=== PATIENT | male | born 1975 | race Caucasian/White ===

== ENCOUNTER 2018-03-22 19:37 | Emergency (ER) | payer OTHER ==
[~2018-03-22] VITALS: Ht 167.6 cm; Wt 102.3 kg
[2018-03-22] MEDS ORDERED: LOSA100T50 (19:42)
[2018-03-22] MEDS ORDERED: FENO1CAP2 (19:42)
[2018-03-22] MEDS ORDERED: FLUO20CA19 (19:42)
[2018-03-22] MEDS ORDERED: NAPR-50 PO (21:59)
[2018-03-22 22:08] VITALS: BP 137/94
== END 2018-03-22 22:09 | disposition home or self-care (01) ==
LOC: M ED 19:37
DX: S86.112A Strain of other muscle(s) and tendon(s) of posterior muscle group at lower leg level, left leg, initial encounter (principal); X50.9XXA Other and unspecified overexertion or strenuous movements or postures, initial encounter; Y92.410 Unspecified street and highway as the place of occurrence of the external cause; Y93.02 Activity, running; I10 Essential (primary) hypertension; E78.5 Hyperlipidemia, unspecified; Z79.899 Other long term (current) drug therapy

== ENCOUNTER → 2020-09-29 | Outpatient (CLI) | payer OTHER ==
[~2020-09-29] MED LIST: FENO135C6; FLUO20CA22; LOSA100T45; NAPR-837 PO
== END ==
LOC: M PLAIMG 08:17
PROVIDERS: ATTEND Chiropractor
DX: M54.6 Pain in thoracic spine (principal); M99.02 Segmental and somatic dysfunction of thoracic region; M99.01 Segmental and somatic dysfunction of cervical region; M54.42 Lumbago with sciatica, left side; M54.41 Lumbago with sciatica, right side; M99.05 Segmental and somatic dysfunction of pelvic region; M99.04 Segmental and somatic dysfunction of sacral region; M99.03 Segmental and somatic dysfunction of lumbar region

== ENCOUNTER 2024-05-22 09:49 | Day surgery (SDC) | payer OTHER ==
[~2024-05-22] VITALS: Ht 167.6 cm; Wt 91.8 kg
[~2024-05-22 09:49] MED LIST changes: +AMLO10CA30 PO; +FLUO-365; -FLUO20CA22; -LOSA100T45; +LOSA100T46
[2024-05-22] MEDS ORDERED: propofoL 200 MG/20 ML VIAL As Ordered ONE (10:41)
[2024-05-22 10:52] VITALS: TEMP 98.3
[2024-05-22 11:08] VITALS: BP 165/102; O2SAT 98
== END 2024-05-22 11:20 | disposition home or self-care (01) ==
LOC: M OPP 09:49
PROVIDERS: ATTEND Surgery
DX: Z12.11 Encounter for screening for malignant neoplasm of colon (principal); K64.1 Second degree hemorrhoids; Z79.899 Other long term (current) drug therapy

== ENCOUNTER 2024-10-23 10:53 | Emergency (ER) | payer OTHER ==
[~2024-10-23] VITALS: Ht 157.5 cm; Wt 94.2 kg
[2024-10-23 12:11] LABS: KETONE, URINE AUTO RFX NEGATIVE (NEGATIVE); LEUKOCYTE ESTERASE UR AUTO RFX NEGATIVE (NEGATIVE); MUCUS, URINE RFX SMALL (NEGATIVE); NITRITE, URINE AUTO RFX NEGATIVE (NEGATIVE); RBC, URINE AUTO RFX 0 /HPF (0-3); SQUAM EPITHELIAL CELL UR AURFX 1 /HPF (0-6); WBC, URINE AUTO RFX 0 /HPF (0-3)
[2024-10-23 12:17] LABS: BASO # 0.0 10^3/uL (0.0-0.2); BASO % 0.6 % (0.0-1.0); EOS # 0.3 10^3/uL (0.0-0.5); EOS % 3.7 % (0.0-3.0); LYMPH # 1.5 10^3/uL (1.5-5.0); LYMPH % 21.8 % (24.0-44.0); MONO # 0.5 10^3/uL (0.0-0.8); MONO % 6.9 % (2.0-8.0); NEUTROPHILS # 4.5 10^3/uL (1.5-8.5); NEUTROPHILS % 66.6 % (36.0-66.0); PLATELET COUNT, AUTOMATED 185 10^3/uL (150-450)
[2024-10-23] MEDS ORDERED: THERTAB52 PO (12:24)
[2024-10-23] MEDS ORDERED: LORA-1164 PO (12:24)
[2024-10-23] MEDS ORDERED: HOME MED LIST COMPLETE! XX SCH (12:25)
[2024-10-23 12:46] LABS: ALT/SGPT 24 U/L (7.0-40); AST/SGOT 20 U/L (<34); CALCIUM LEVEL 9.3 MG/DL (8.5-10.1); CARBON DIOXIDE LEVEL 27 MMOL/L (20-31); CHLORIDE LEVEL 104 MMOL/L (98-107); CREATININE FOR GFR 0.75 MG/DL (0.70-1.30); GLOMERULAR FILTRATION RATE > 90.0 (>56); POTASSIUM SERUM 4.0 MMOL/L (3.5-5.1); SODIUM LEVEL 141 MMOL/L (136-145)
[2024-10-23] MEDS ORDERED: ISOVUE-370 76% 100 ML VIAL As Ordered ONE (13:24)
[2024-10-23] MEDS: KETOROLAC 30 MG/ML 1 ML VIAL IV ONE (14:36)
[2024-10-23 15:31] VITALS: BP 128/84; TEMP 97.7; O2SAT 100
[2024-10-23] MEDS ORDERED: CIPR-249 PO (15:50)
== END 2024-10-23 15:58 | disposition home or self-care (01) ==
LOC: M ED 10:53
DX: R10.9 Unspecified abdominal pain (principal); Z79.899 Other long term (current) drug therapy
CPT/HCPCS: 74177; 80053; 81001; 83605; 83690; 85025; 96374; 99284; J1885; Q9967

== ENCOUNTER → 2025-01-18 | Outpatient (CLI) | payer OTHER ==
[~2025-01-18] MED LIST changes: +CIPR-249 PO; +LORA-1164 PO; +THERTAB52 PO
[2025-01-18 13:36] LABS: ALT/SGPT 31 U/L (7.0-40); AST/SGOT 18 U/L (<34); CALCIUM LEVEL 9.3 MG/DL (8.5-10.1); CARBON DIOXIDE LEVEL 29 MMOL/L (20-31); CHLORIDE LEVEL 105 MMOL/L (98-107); CHOLESTEROL LEVEL 173 MG/DL (<200); CHOLESTEROL RISK RATIO 5.01 (<5); CREATININE FOR GFR 0.97 MG/DL (0.70-1.30); GLOMERULAR FILTRATION RATE > 90.0 (>56); LDL CHOLESTEROL 68.3 MG/DL (<100); NON-HDL-C 138.5 MG/DL; POTASSIUM SERUM 4.2 MMOL/L (3.5-5.1); SODIUM LEVEL 143 MMOL/L (136-145); TRIGLYCERIDES LEVEL 351 MG/DL (<150)
[2025-01-18 13:43] LABS: ESTIMATED AVERAGE GLUCOSE 120.0 MG/DL (60-110)
== END ==
LOC: M RAD 12:32
PROVIDERS: ATTEND Internal Medicine
DX: R07.89 Other chest pain (principal); E78.5 Hyperlipidemia, unspecified; R73.01 Impaired fasting glucose